=== PATIENT | female | born 1980 | race Caucasian/White ===

== ENCOUNTER 2019-12-17 10:44 | Emergency (ER) | payer MEDICAID ==
[~2019-12-17] VITALS: Ht 165.1 cm; Wt 107.0 kg
[2019-12-17 11:05] VITALS: BP_SYST 119
--- NOTE | 2019-12-17 11:10 | NUR ---
Patient triaged and placed in waiting room. VSS and patient appears in no acute distress at this time. Accompanied by FRIENDS, awaiting available bed, and MD notified of need for MSE.
--- NOTE | 2019-12-17 12:47 | NUR ---
BROUGHT BACK TO BED #6 AND REPORT GIVEN TO DELVIS
--- NOTE | 2019-12-17 13:05 | NUR ---
Patient presented to ER C/O cold symptoms. Patient A&Ox4, afebrile, skin pink and warm, ambulatory to ER, nausea, denies V/D, cough, nasal congestion, pain 7/10. Patient states she have cold symptoms x3 days, headache and she feels like her "chest is caving in".
[2019-12-17 13:45] VITALS: BP_SYST 120
--- NOTE | 2019-12-17 13:45 | NUR ---
Patient given written and verbal discharge instructions and verbalizes understanding. ER MD discussed with patient the results and treatment provided. Patient in stable condition. ID arm band removed. Rx of promethizine & tamiflu given. Patient educated on pain management and to follow up with PMD. Pain Scale . Opportunity for questions provided and answered.
== END 2019-12-17 13:45 | disposition home or self-care (01) ==
LOC: SED 10:44
DX: Z20.828 Contact with and (suspected) exposure to other viral communicable diseases (principal)
CPT/HCPCS: 99283